=== PATIENT | female | born 2000 | race Two or more races ===

== ENCOUNTER 2019-04-28 01:26 | Emergency (ER) | payer OTHER ==
[~2019-04-28] VITALS: Ht 162.6 cm; Wt 61.2 kg
[~2019-04-28 01:26] MED LIST: AMOX1TAB5 PO; BUCALSEP SPRAY30 ML MM
[2019-04-28] MEDS ORDERED: DUI500 PO (04:12)
[2019-04-28] MEDS ORDERED: MUPIROCIN22 GM TOP (04:12)
== END 2019-04-28 04:19 | disposition home or self-care (01) ==
LOC: ER 01:26
DX: S00.83XA Contusion of other part of head, initial encounter (principal); W18.39XA Other fall on same level, initial encounter; Y93.89 Activity, other specified; Y92.098 Other place in other non-institutional residence as the place of occurrence of the external cause; Y99.8 Other external cause status